=== PATIENT | male | born 1990 | race Caucasian/White ===

== ENCOUNTER 2020-01-11 03:55 | Emergency (ER) | payer OTHER ==
[~2020-01-11] VITALS: Ht 170.2 cm; Wt 115.7 kg
[2020-01-11 03:57] VITALS: BP 133/80
--- NOTE | 2020-01-11 04:04 | NUR ---
PT AMBULATED TO BED 11 WITH STEADY GAIT.
--- NOTE | 2020-01-11 04:05 | NUR ---
29 Y/O MALE C/O INCREASED PAIN FROM UMBILICAL HERNIA THAT OCCURED ON 09/13/2019 SECONDARY TO A WORKER'S COMP INJURY. PT STATES PAIN HAS INCREASED X 2 DAYS AND CANNOT SLEEP ON ABD AND TENDER TO PALP. HAS NOT BEEN ABLE TO SEE A WORKER'S COMP DOCTOR DUE TO OFFICE CLOSURES. PT STATES PAIN FEELS BURNING/STRETCHING/CONSTANT. NO OTC PAIN MEDICATION TAKEN. DENIES N/V/D; SKIN IS PINK/WARM/DRY; AAOX4 WITH EVEN AND STEADY GAIT; PT DENIES ANY FEVER, CP, SOB, OR COUGH AT THIS TIME; PATIENT STATES PAIN OF 6/10 AT THIS TIME; VSS; PATIENT POSITIONED FOR COMFORT; HOB ELEVATED; BEDRAILS UP X1; BED DOWN AND LOCKED, PT PLACED IN GOWN. ER MD MADE AWARE OF PT STATUS. MEDICAL HX: ANXIETY NKA
--- NOTE | 2020-01-11 04:08 | NUR ---
AT BEDSIDE EXAMINING PT
--- NOTE | 2020-01-11 04:23 | NUR ---
PT TAKEN TO CT VIA WHEELCHAIR
--- NOTE | 2020-01-11 04:33 | NUR ---
PT RETURNED FROM CT VIA WHEELCHAIR, RESTING IN BED IN POSITION OF COMFORT, WILL CONTINUE TO MONITOR.
--- NOTE | 2020-01-11 05:40 | NUR ---
DPatient discharged with v/s stable. Written and verbal after care instructions given and explained. Patient verbalized understanding. Ambulatory with steady gait. All questions addressed prior to discharge. Advised to follow up with PMD.
[2020-01-11 05:43] VITALS: BP 133/80
== END 2020-01-11 05:40 | disposition home or self-care (01) ==
LOC: MED 03:55
DX: R10.33 Periumbilical pain (principal)
CPT/HCPCS: 99284

== ENCOUNTER 2020-02-02 15:39 | Emergency (ER) | payer OTHER, SELFPAY ==
[~2020-02-02] VITALS: Ht 175.3 cm; Wt 104.3 kg
[2020-02-02 15:50] VITALS: BP 147/87
--- NOTE | 2020-02-02 15:56 | NUR ---
Patient ambulated to bed 1. RN evaluating patient at bedside.
--- NOTE | 2020-02-02 16:24 | NUR ---
XRAY AT BEDSIDE.
--- NOTE | 2020-02-02 16:41 | NUR ---
PT RESTING IN BED AT LOWEST POSITION, SIDE RAIL X1 , NAD NOTED.
--- NOTE | 2020-02-02 17:30 | NUR ---
LARON GREEN AT BEDSIDE FOR EVALUATION.
[2020-02-02 17:54] VITALS: BP 147/87
--- NOTE | 2020-02-02 17:56 | NUR ---
Patient discharged with v/s stable. Written and verbal after care instructions given and explained. Patient alert, oriented and verbalized understanding of instructions. Ambulatory with steady gait. All questions addressed prior to discharge. ID band removed. Patient advised to follow up with PMD. Rx of PROMETHAZINE given. Patient educated on indication of medication including possible reaction and side effects. Opportunity to ask questions provided and answered.
== END 2020-02-02 17:56 | disposition home or self-care (01) ==
LOC: EEVIPCON 15:39 → MED 15:39
DX: U07.1 COVID-19 (principal); K42.9 Umbilical hernia without obstruction or gangrene; R06.02 Shortness of breath; R03.0 Elevated blood-pressure reading, without diagnosis of hypertension
CPT/HCPCS: 71045; 99283; Q0092

== ENCOUNTER 2021-05-30 22:14 | Emergency (ER) | payer OTHER, SELFPAY ==
[~2021-05-30] VITALS: Ht 170.2 cm; Wt 122.5 kg
[2021-05-30 22:50] VITALS: BP 136/86
--- NOTE | 2021-05-30 22:53 | NUR ---
TO LOBBY A/W BED AMBULATORY
--- NOTE | 2021-05-30 23:31 | NUR ---
FIDE [place]aw at bedside for examination of patient.
[2021-05-30] MEDS ORDERED: IBUPROFEN 600 MG TAB PO ONE (23:35)
[2021-05-31 00:09] VITALS: BP 136/86
--- NOTE | 2021-05-31 00:09 | NUR ---
Patient discharged with v/s stable. Written and verbal after care instructions given and explained. Patient alert, oriented and verbalized understanding of instructions. Ambulatory with steady gait. All questions addressed prior to discharge. ID band removed. Patient advised to follow up with PMD. Rx of diflucan, falgyl, naprosyn given. Patient educated on indication of medication including possible reaction and side effects. Opportunity to ask questions provided and answered.
[2021-05-31] MEDS ORDERED: NAPR-54 PO (00:10)
== END 2021-05-31 00:09 | disposition home or self-care (01) ==
LOC: MED 22:14
DX: K40.20 Bilateral inguinal hernia, without obstruction or gangrene, not specified as recurrent (principal); Z79.899 Other long term (current) drug therapy
CPT/HCPCS: 99283

== ENCOUNTER 2022-10-09 22:58 | Emergency (ER) | payer OTHER ==
[~2022-10-09] VITALS: Ht 170.2 cm; Wt 129.3 kg
[~2022-10-09 22:58] MED LIST: NAPR-54 PO
[2022-10-09 23:01] VITALS: BP 115/74
--- NOTE | 2022-10-09 23:01 | NUR ---
to bed ambulatory
--- NOTE | 2022-10-09 23:10 | NUR ---
Patient resting in bed, A/Ox4, chest rise and fall symmetrical, no s/s of distress.
[2022-10-09 23:26] LABS: APPEARANCE,URINE CLEAR (CLEAR); BILIRUBIN,URINE NEGATIVE (NEGATIVE); BLOOD, URINE NEGATIVE (NEGATIVE); COLOR,URINE YELLOW (YELLOW); LEUKOCYTE ESTERASE ,URINE NEGATIVE (NEGATIVE); NITRITE, URINE NEGATIVE (NEGATIVE); UGLUCOSE NEGATIVE (NEGATIVE)
--- NOTE | 2022-10-10 00:02 | NUR ---
ER physician at bedside assessing patient.
[2022-10-10] MEDS ORDERED: MORPHINE SULFATE 4 MG/ML SYR IVP ONE (00:10)
[2022-10-10] MEDS ORDERED: ONDANSETRON 4 MG/2 ML VIAL IVP ONE (00:10)
[2022-10-10 00:25] LABS: BASOPHILS # (AUTO) 0.1 K/uL (0.00-0.22); BASOPHILS % (AUTO) 0.8 % (0.0-2.0); EOSINOPHILS # (AUTO) 0.2 K/uL (0-0.4); EOSINOPHILS % (AUTO) 1.9 % (0.0-4.0); HEMATOCRIT 45.5 % (36-52); HEMOGLOBIN 15.4 g/dL (12.0-18.0); LYMPHOCYTES # (AUTO) 3.3 K/uL (2.0-11.5); LYMPHOCYTES % (AUTO) 36.6 % (20.5-51.1); MEAN CORPUSCULAR HEMOGLOBIN 30 pg (27-31); MEAN CORPUSCULAR HGB CONC 34 g/dL (33-37); MEAN CORPUSCULAR VOLUME 86.9 fL (80-94); MONOCYTES # (AUTO) 0.7 K/uL (0.8-1.0); MONOCYTES % (AUTO) 7.5 % (1.7-9.3); NEUTROPHILS # (AUTO) 4.8 K/uL (1.8-7.7); NEUTROPHILS % (AUTO) 53.2 % (42.2-75.2); PLATELET COUNT (AUTO) 233 K/uL (140-450); RED BLOOD CELL COUNT(AUTO) 5.24 MIL/uL (4.20-6.10); RED CELL DISTRIBUTION WIDTH 13.9 % (11.6-13.7); WHITE BLOOD COUNT (AUTO) 9.1 K/uL (4.8-10.8)
[2022-10-10 00:41] LABS: ALBUMIN 4.1 g/dL (3.4-5.0); ANION GAP 10.3 (8-16); CARBON DIOXIDE 29.2 mmol/L (21-32); POTASSIUM 4.5 mmol/L (3.5-5.1); TOTAL BILIRUBIN 0.5 mg/dL (0.0-1.0)
[2022-10-10] MEDS ORDERED: ONDANSETRON 4 MG ODT PO ONE (00:45)
[2022-10-10] MEDS ORDERED: HYDROcodone/APAP 10/325 MG 1 TAB TAB PO ONE (00:45)
--- NOTE | 2022-10-10 01:55 | NUR ---
Patient resting in bed, A/Ox4, chest rise and fall symmetrical, no c/o pain or s/s of distress.
--- NOTE | 2022-10-10 02:56 | NUR ---
Patient discharged with v/s stable. Written and verbal after care instructions given and explained. Patient verbalized understanding. Ambulatory with steady gait. All questions addressed prior to discharge. Advised to follow up with PMD.
[2022-10-10 02:57] VITALS: BP 119/75
== END 2022-10-10 02:55 | disposition home or self-care (01) ==
LOC: MED 22:58
DX: K80.50 Calculus of bile duct without cholangitis or cholecystitis without obstruction (principal); Z20.822 Contact with and (suspected) exposure to COVID-19; I48.91 Unspecified atrial fibrillation; Z79.1 Long term (current) use of non-steroidal anti-inflammatories (NSAID)
CPT/HCPCS: 36415; 76705; 80053; 81003; 83690; 85025; 87426; 99284; Q0092; Q0162; J2270; J2405

== ENCOUNTER 2023-01-20 11:57 | Emergency (ER) | payer OTHER ==
--- NOTE | 2023-01-20 13:02 | NUR ---
PT. NOT FOUND IN LOBBY. PT. DID NOT ANSWER TO HIS NAME
--- NOTE | 2023-01-20 13:33 | NUR ---
PT. NOT FOUND IN LOBBY. PT. DID NOT ANSWER TO HIS NAME
--- NOTE | 2023-01-20 14:30 | NUR ---
Pt. called in ER lobby and no answer received. Called pt.'s name outside ER and no answer received. Checked bathroom and pt. was not found. Pt. left ER without triage. ER MD notified.
== END 2023-01-20 13:02 | disposition left against medical advice (07) ==
LOC: MED 11:57
DX: R53.83 Other fatigue (principal); R07.89 Other chest pain; R53.1 Weakness; Z53.21 Procedure and treatment not carried out due to patient leaving prior to being seen by health care provider

== ENCOUNTER 2023-01-21 22:57 | Emergency (ER) | payer OTHER ==
[~2023-01-21] VITALS: Ht 170.2 cm; Wt 131.5 kg
[2023-01-21 23:05] VITALS: BP 137/87
--- NOTE | 2023-01-21 23:08 | NUR ---
TO LOBBY A/W BED AMBULATORY
== END 2023-01-21 23:34 | disposition left against medical advice (07) ==
LOC: MED 22:57
DX: I10 Essential (primary) hypertension (principal); Z53.21 Procedure and treatment not carried out due to patient leaving prior to being seen by health care provider
CPT/HCPCS: 99281